=== PATIENT | male | born 1960 | race Two or more races ===

== ENCOUNTER 2016-12-02 11:07 | Emergency (ER) | payer OTHER ==
[~2016-12-02] VITALS: Ht 182.9 cm; Wt 88.5 kg
[2016-12-02] MEDS ORDERED: Aspirin Baby 81mg ONE (11:12)
[2016-12-02] MEDS ORDERED: Aspirin Baby 81mg ORAL ONE (11:15)
[2016-12-02 11:29] VITALS: BP 92/61
[2016-12-02 11:54] LABS: ALBUMIN/GLOBULIN RATIO 1.2 (1.0-2.7); CALCIUM 9.1 mg/dL (8.6-10.2); CREATININE 1.5 mg/dL (0.7-1.2); GLOMERULAR FILTRATION RATE 48.2 mL/min (>60); TOTAL PROTEIN 6.6 g/dL (6.6-8.7)
[2016-12-02] MEDS ORDERED: Heparin 5000 units/ml inj ONE (11:59)
[2016-12-02 12:00] VITALS: BP 99/51
[2016-12-02] MEDS ORDERED: Heparin 25,000u/D5W 500ml 500 ML IV SCH (12:00)
[2016-12-02] MEDS ORDERED: Heparin 5000 units/ml inj IV ONE (12:00)
[2016-12-02 12:01] LABS: TROPONIN I < 0.30 ng/mL (<=0.30)
[2016-12-02 12:10] LABS: BASOPHILS % (AUTO) 0.4 % (0.0-2.0); EOSINOPHILS % (AUTO) 0.6 % (0.0-3.0); LYMPHOCYTES % (AUTO) 28.4 % (20.0-45.0); MEAN CORPUSCULAR HGB CONC 29.6 G/DL (32.0-36.0); MEAN CORPUSCULAR VOLUME 74 FL (80-99); MEAN PLATELET VOLUME 7.9 FL (6.5-10.1); MONOCYTES % (AUTO) 7.4 % (1.0-10.0); NEUTROPHILS % (AUTO) 63.2 % (45.0-75.0); PLATELET COUNT 237 K/UL (150-450); RED BLOOD COUNT 4.35 M/UL (4.70-6.10); RED CELL DISTRIBUTION WIDTH 14.1 % (11.6-14.8)
[2016-12-02] MEDS ORDERED: Sodium Bicarbonate 8.4% 50ml Carp IV ONE (12:15)
[2016-12-02 12:21] LABS: INR 1.1 (0.9-1.1); PROTHROMBIN TIME 10.4 SEC (9.30-11.50)
--- NOTE | 2016-12-02 12:21 | Emergency Room Report ---
History of Present Illness General Chief Complaint: Dyspnea/Respdistress Source: Patient Present Illness HPI The patient is a 56-year-old male brought in for shortness of breath intermittently since this morning. Patient was noted to have been brought in by EMS. Patient was noted to have initial EKG which showed some septal Q waves. Patient was noted to be breathing abnormally by paramedics. Patient was noted to be diaphoretic. He had prior history of diabetes as well as hypertension. Patient denied prior cardiac history. Patient states he was having some leg swelling recently. Allergies: Coded Allergies: No Known Allergies (Unverified , 12/02/16) Patient History Past Medical History: see triage record Reviewed Nursing Documentation: PMH: Agreed, PSxH: Agreed Nursing Documentation-PMH Hx Cardiac Problems: No Hx Hypertension: Yes Hx Pacemaker: No Hx Asthma: No Hx COPD: No Hx Diabetes: Yes Hx Cancer: No Hx Gastrointestinal Problems: No Hx Dialysis: No Hx Neurological Problems: No Hx Cerebrovascular Accident: No Hx Seizures: No Review of Systems All Other Systems: negative except mentioned in HPI Physical Exam Vital Signs Date Time Temp Pulse Resp B/P Pulse Ox O2 Delivery O2 Flow Rate FiO2 12/02/16 11:01 98.1 94 20 146/78 100 Room Air 12/02/16 12:00 2.0 Sp02 EP Interpretation: reviewed, normal General Appearance: alert, GCS 15, moderate distress, obese, other - pallor, diaphoretic Head: atraumatic ENT: normal ENT inspection, hearing grossly normal, normal voice Neck: normal inspection, full range of motion, supple, no bony tend Respiratory: normal inspection, lungs clear, normal breath sounds, no respiratory distress, no retraction, no wheezing Cardiovascular #1: regular rate, rhythm, no edema Gastrointestinal: normal inspection, normal bowel sounds, non tender, soft, no guarding, no hernia Genitourinary: no CVA tenderness Musculoskeletal: normal inspection, back normal, normal range of motion Neurologic: normal inspection, alert, oriented x3, responsive, 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 Because of complexity of patient's case laboratory testing and imaging studies were ordered. The patient was given aspirin initially. Patient was started on IV fluids do to hypotension. Patient was noted to have initial EKG with septal Q waves with some hyperacute T waves. A rate of 91 there was lateral T-wave inversion in lead aVL a repeat EKG showed T-wave inversion in the anterolateral leads as well as inferiorlyand with a rate of 66. Chest x-ray one view interpreted by me showed normal cardiac size without evident infiltrate normal mediastinum. Dr. Mahmood at [facility] was contacted for oral care transfer. Patient is being transferred for further cardiac evaluation and possible reperfusion. Labs Test 12/02/16 11:15 12/02/16 11:47 Sodium Level 135 mEQ/L (135-145) Potassium Level 6.0 mEQ/L (3.4-4.9) Chloride Level 100 mEQ/L (98-107) Carbon Dioxide Level 21 mEQ/L (20-30) Anion Gap 14 (5-15) Blood Urea Nitrogen 38 mg/dL (7-23) Creatinine 1.5 mg/dL (0.7-1.2) Estimat Glomerular Filtration Rate 48.2 mL/min (>60) Glucose Level 136 mg/dL (74-106) Calcium Level 9.1 mg/dL (8.6-10.2) Total Bilirubin 0.4 mg/dL (0.0-1.2) Aspartate Amino Transf (AST/SGOT) 14 U/L (5-40) Alanine Aminotransferase (ALT/SGPT) 12 U/L (3-41) Alkaline Phosphatase 40 U/L (40-129) Total Creatine Kinase 271 U/L (38-174) Troponin I < 0.30 ng/mL (<=0.30) Pro-B-Type Natriuretic Peptide 36 pg/mL (0-125) Total Protein 6.6 g/dL (6.6-8.7) Albumin 3.6 g/dL (3.5-5.2) Globulin 3.0 g/dL Albumin/Globulin Ratio 1.2 (1.0-2.7) Lipase 36 U/L (< 60) White Blood Count 9.0 K/UL (4.8-10.8) Red Blood Count 4.35 M/UL (4.70-6.10) Hemoglobin 9.6 G/DL (14.2-18.0) Hematocrit 32.3 % (42.0-52.0) Mean Corpuscular Volume 74 FL (80-99) Mean Corpuscular Hemoglobin 22.0 PG (27.0-31.0) Mean Corpuscular Hemoglobin Concent 29.6 G/DL (32.0-36.0) Red Cell Distribution Width 14.1 % (11.6-14.8) Platelet Count 237 K/UL (150-450) Mean Platelet Volume 7.9 FL (6.5-10.1) Neutrophils (%) (Auto) 63.2 % (45.0-75.0) Lymphocytes (%) (Auto) 28.4 % (20.0-45.0) Monocytes (%) (Auto) 7.4 % (1.0-10.0) Eosinophils (%) (Auto) 0.6 % (0.0-3.0) Basophils (%) (Auto) 0.4 % (0.0-2.0) Rhythm Strip Diag. Results EP Interpretation: yes Rhythm: NSR, no PVC's, no ectopy Last Vital Signs Date Time Temp Pulse Resp B/P Pulse Ox O2 Delivery O2 Flow Rate FiO2 12/02/16 12:00 64 18 99/51 100 Nasal Cannula 2.0 12/02/16 11:29 97.4 Status: unchanged Disposition: XFER SHT-TRM HOSP Condition: Critical Referrals: [facility],REFERRING (PCP) Jorge Freire Dec 02, 2016 12:21
[2016-12-02 12:32] VITALS: BP 99/51
--- NOTE | 2016-12-02 13:56 | Diagnostic Imaging Report ---
Indication: SOB Technique: One view of the chest Comparison: none Findings: Lungs and pleural spaces are clear. Heart size is normal. Impression: No acute process
--- NOTE | 2016-12-03 11:22 | Cardiology Report ---
APPROVED REPORT EKG Measurement Heart [id number] Normal sinus rhythm Minimal voltage criteria for LVH, may be normal variant T wave abnormality, consider anterolateral ischemia Abnormal ECG
== END 2016-12-02 12:35 | disposition short-term general hospital (02) ==
LOC: EDBD 11:07 → EMR 11:40
DX: I24.9 Acute ischemic heart disease, unspecified (principal); I21.3 ST elevation (STEMI) myocardial infarction of unspecified site; I10 Essential (primary) hypertension; E11.9 Type 2 diabetes mellitus without complications; R61 Generalized hyperhidrosis; I95.9 Hypotension, unspecified
CPT/HCPCS: 36415; 71010; 80053; 82550; 82553; 82962; 83690; 83880; 84484; 85025; 85610; 85730; 86850; 86900; 86901; 93005; 96360; 96374; 96375; 99285; J1644; J1815